=== PATIENT | male | born 1950 | race Caucasian/White ===

== ENCOUNTER → 2016-04-06 | Outpatient (CLI) | payer MEDICARE, BC ==
[~2016-04-06] MED LIST: CARDIZEM CD 18180 MG PO; CHOLESTEROL MED; COUMADIN 5MG5 MG/TAB PO; FLEXERIL 1010 MG/TAB PO; LIPITOR 40MG TA40 MG PO; MULTAQ400 MG PO; OSCAL 500 TAB500 MG PO; PERCOCET 325 MG1 TA2 PO; PRED FORTE 1 ML1 ML OP; RT ADVAIR HFA 1112 G IH; SYNTHROID0.075 MG/T PO; TYLENOL 325MG325 MG PO; [UNRECOGNIZED DRUG - REMARK]
== END ==
LOC: COL.PUL 07:43
DX: R06.02 Shortness of breath (principal)

== ENCOUNTER → 2016-12-24 | Outpatient (CLI) | payer MEDICARE, BC ==
[~2016-12-24] MED LIST changes: +CLEOCIN HCL300 MG PO; +COUMADIN 22.5 MG/TAB PO; +PRED FORTE 1 ML1 ML; +TAMBOCOR 1100 MG/TAB PO; +TAZTIA240 PO; +ZESTRIL2.5 MG PO
== END ==
LOC: COL.RAD 15:19
DX: J34.89 Other specified disorders of nose and nasal sinuses (principal); M47.812 Spondylosis without myelopathy or radiculopathy, cervical region; J32.9 Chronic sinusitis, unspecified; R90.82 White matter disease, unspecified; R00.0 Tachycardia, unspecified

== ENCOUNTER 2016-12-25 16:16 | Inpatient (IN) | payer MEDICARE, BC ==
[~2016-12-25] VITALS: Ht 170.2 cm; Wt 115.2 kg
[~2016-12-25 16:16] MED LIST changes: -CLEOCIN HCL300 MG PO; -COUMADIN 22.5 MG/TAB PO; -PRED FORTE 1 ML1 ML; -TAMBOCOR 1100 MG/TAB PO; -TAZTIA240 PO; -ZESTRIL2.5 MG PO
[2016-12-25] MEDS ORDERED: TAZTIA240 PO (16:55)
[2016-12-25] MEDS ORDERED: TAMBOCOR 1100 MG/TAB PO (16:55)
[2016-12-25] MEDS ORDERED: COUMADIN 22.5 MG/TAB PO (16:56)
[2016-12-25] MEDS ORDERED: ZESTRIL2.5 MG PO (16:57)
[2016-12-25] MEDS ORDERED: CLEOCIN HCL300 MG PO (16:58)
[2016-12-25 17:12] LABS: HEMOGLOBIN 17.8 g/dl (13.5-18.0); MEAN CELL VOLUME 85 fl (80.0-100.0); MEAN CORPUSCULAR HEMOGLOBIN 27 pg (27.0-31.0); MEAN CORPUSCULAR HGB CONC 32 g/dl (33.0-37.0); PLATELET COUNT 176 K/mm3 (130-400); REDCELL DISTRIBUTION WIDTH-CV 17.8 % (11.5-14.5); WHITE BLOOD COUNT 17.7 K/mm3 (4.8-10.8)
[2016-12-25 17:15] LABS: ADD PATHOLOGY DIFF REVIEW NO; HEMATOCRIT 55.1 % (42.0-52.0)
[2016-12-25 17:23] LABS: INR 2.9 (0.8-3.0); PROTHROMBIN TIME 33.9 SECONDS (9.7-12.8)
[2016-12-25 17:31] LABS: ADJUSTED CALCIUM 9.2 mg/dL (8.4-10.2); ALBUMIN 4.1 gm/dL (3.5-5.0); BILIRUBIN,TOTAL 1.9 mg/dL (0.0-1.0); C-REACTIVE PROTEIN 7.6 mg/dL (0.0-0.9); CALCIUM 9.3 mg/dL (8.4-10.2); CREATININE, serum 0.92 mg/dL (0.66-1.25); POTASSIUM 4.2 mmol/L (3.4-5.0); TOTAL PROTEIN 7.6 gm/dL (6.4-8.2)
[2016-12-25 17:37] LABS: BAND 1 % (0-10); NEUTROPHILS 80 % (42.0-75.2); PLATELET ESTIMATE NORMAL (NORMAL); TOTAL CELLS COUNTED 100
[2016-12-25 20:16] VITALS: BP 153/70; PULSE 90; TEMP 98.9
[2016-12-26] VITALS (9 sets, daily range): BP systolic 131–173; BP diastolic 55–87; PULSE 77–89; TEMP 97.6–100
[2016-12-26] MEDS ORDERED: PRED FORTE 1 ML1 ML (06:18)
[2016-12-26 07:25] LABS: BASO % 0.1 % (0.0-2.0); EOS # 0.1 (0.0-0.7); EOS % 1.1 % (0-4.0); GRAN # 7.4 (1.4-6.5); GRAN % 72.8 % (42.2-75.2); HEMATOCRIT 50.6 % (42.0-52.0); HEMOGLOBIN 16.3 g/dl (13.5-18.0); LYMPH # 1.3 (1.2-3.4); MEAN CELL VOLUME 86 fl (80.0-100.0); MEAN CORPUSCULAR HEMOGLOBIN 28 pg (27.0-31.0); MEAN CORPUSCULAR HGB CONC 32 g/dl (33.0-37.0); MEAN PLATELET VOLUME 11.4 fl (7.4-10.4); MONO # 1.3 (0.1-0.6); MONO % 12.8 % (1.7-9.3); PLATELET COUNT 143 K/mm3 (130-400); RED BLOOD COUNT 5.92 M/mm3 (4.20-5.60); REDCELL DISTRIBUTION WIDTH-CV 17.2 % (11.5-14.5); WHITE BLOOD COUNT 10.2 K/mm3 (4.8-10.8)
[2016-12-26 07:37] LABS: INR 2.5 (0.8-3.0); PROTHROMBIN TIME 28.7 SECONDS (9.7-12.8)
[2016-12-26 11:10] LABS: CALCIUM 8.8 mg/dL (8.4-10.2); CREATININE, serum 0.92 mg/dL (0.66-1.25); POTASSIUM 4.1 mmol/L (3.4-5.0)
[2016-12-26 20:52] LABS: PH 6 (5-8); SQUAMOUS EPITHELIAL None Seen /hpf; URINE APPEARANCE Clear; URINE BACTERIA None Seen /hpf; URINE BILIRUBIN Negative (NEGATIVE); URINE BLOOD Negative (NEGATIVE); URINE COLOR Yellow; URINE GLUCOSE Negative (NEGATIVE); URINE KETONE Negative (NEGATIVE); URINE RBC 0-2 /hpf; URINE WBC 0-2 /hpf
[2016-12-27 03:26] VITALS: BP 144/68; PULSE 76; TEMP 97.6
[2016-12-27 06:39] LABS: BASO % 0.1 % (0.0-2.0); EOS # 0.2 (0.0-0.7); EOS % 1.6 % (0-4.0); GRAN # 6.8 (1.4-6.5); GRAN % 74.2 % (42.2-75.2); HEMATOCRIT 48.8 % (42.0-52.0); HEMOGLOBIN 15.8 g/dl (13.5-18.0); LYMPH # 1.2 (1.2-3.4); MEAN CELL VOLUME 86 fl (80.0-100.0); MEAN CORPUSCULAR HEMOGLOBIN 28 pg (27.0-31.0); MEAN CORPUSCULAR HGB CONC 32 g/dl (33.0-37.0); MEAN PLATELET VOLUME 11.2 fl (7.4-10.4); MONO % 10.9 % (1.7-9.3); PLATELET COUNT 146 K/mm3 (130-400); RED BLOOD COUNT 5.71 M/mm3 (4.20-5.60); REDCELL DISTRIBUTION WIDTH-CV 16.5 % (11.5-14.5); WHITE BLOOD COUNT 9.1 K/mm3 (4.8-10.8)
[2016-12-27 07:18] LABS: INR 1.4 (0.8-3.0); PROTHROMBIN TIME 15.7 SECONDS (9.7-12.8)
[2016-12-27 07:53] VITALS: BP 152/63; PULSE 81; TEMP 98.2
== END 2016-12-27 10:13 | disposition home or self-care (01) | DRG 153 ==
LOC: COL.ER 16:16 → MEDICAL 19:15
PROVIDERS: Emergency Medicine; Family Medicine; Nurse Practitioner Family; Physician Assistant
DX: J01.00 Acute maxillary sinusitis, unspecified (principal); K04.7 Periapical abscess without sinus; I10 Essential (primary) hypertension; I48.91 Unspecified atrial fibrillation; Z79.01 Long term (current) use of anticoagulants; I87.8 Other specified disorders of veins
CPT/HCPCS: 99222-AI; 99238; J7030

== ENCOUNTER 2017-07-01 20:00 | Emergency (ER) | payer MEDICARE, BC ==
[~2017-07-01] VITALS: Ht 172.7 cm; Wt 113.6 kg
[~2017-07-01 20:00] MED LIST changes: +CLEOCIN HCL300 MG PO; +COUMADIN 22.5 MG/TAB PO; +PRED FORTE 1 ML1 ML; +TAMBOCOR 1100 MG/TAB PO; +TAZTIA240 PO; +ZESTRIL2.5 MG PO
[2017-07-01 20:11] VITALS: TEMP 98.6
[2017-07-01 20:26] LABS: BASO % 0.2 % (0.0-2.0); EOS # 0.1 (0.0-0.7); EOS % 0.8 % (0-4.0); GRAN # 11.9 (1.4-6.5); HEMOGLOBIN 17.3 g/dl (13.5-18.0); LYMPH # 1.7 (1.2-3.4); LYMPH % 11.3 % (20.0-51.0); MEAN CELL VOLUME 85 fl (80.0-100.0); MEAN CORPUSCULAR HEMOGLOBIN 28 pg (27.0-31.0); MEAN CORPUSCULAR HGB CONC 33 g/dl (33.0-37.0); MEAN PLATELET VOLUME 10.6 fl (7.4-10.4); MONO # 1.2 (0.1-0.6); MONO % 8.2 % (1.7-9.3); PLATELET COUNT 253 K/mm3 (130-400); RED BLOOD COUNT 6.26 M/mm3 (4.20-5.60); REDCELL DISTRIBUTION WIDTH-CV 16.3 % (11.5-14.5)
[2017-07-01 20:27] LABS: HEMATOCRIT 53.3 % (42.0-52.0)
[2017-07-01 20:29] LABS: PROTHROMBIN TIME 35.3 SECONDS (9.7-12.8)
[2017-07-01] MEDS ORDERED: CARDIZEM LA300 MG PO (20:29)
[2017-07-01] MEDS ORDERED: TAMBOCOR150 MG PO (20:29)
[2017-07-01] MEDS ORDERED: LASIX 20MG TABL20 MG PO ×2 (20:30)
[2017-07-01 20:37] LABS: ALBUMIN 3.6 gm/dL (3.5-5.0); BILIRUBIN,TOTAL 0.9 mg/dL (0.0-1.0); CALCIUM 8.9 mg/dL (8.4-10.2); CREATININE, serum 0.84 mg/dL (0.66-1.25); POTASSIUM 3.8 mmol/L (3.4-5.0); TOTAL PROTEIN 7.4 gm/dL (6.4-8.2)
[2017-07-01 20:48] LABS: TROPONIN-I 0.021 ng/mL (0.000-0.034)
[2017-07-01] MEDS ORDERED: PROAIR HFA0.09 MG/AC IH (20:54)
[2017-07-01 21:26] VITALS: BP 157/95; PULSE 85
== END 2017-07-01 21:28 | disposition home or self-care (01) ==
LOC: COL.ER 20:00
PROVIDERS: Family Medicine
DX: I10 Essential (primary) hypertension (principal); I48.91 Unspecified atrial fibrillation; E66.9 Obesity, unspecified; Z68.38 Body mass index [BMI] 38.0-38.9, adult; Z79.51 Long term (current) use of inhaled steroids

== ENCOUNTER 2017-07-03 08:13 | Emergency (ER) | payer MEDICARE, BC ==
[~2017-07-03] VITALS: Ht 172.7 cm; Wt 113.6 kg
[~2017-07-03 08:13] MED LIST changes: +CARDIZEM LA300 MG PO; +LASIX 20MG TABL20 MG PO; +PROAIR HFA0.09 MG/AC IH; +TAMBOCOR150 MG PO
[2017-07-03 08:30] VITALS: TEMP 97.9
[2017-07-03] MEDS ORDERED: TYLENOL 325MG325 MG PO (08:38)
[2017-07-03] MEDS ORDERED: PRED FORTE 1 ML1 ML (08:40)
[2017-07-03] MEDS ORDERED: JANTOVEN5 MG PO (08:41)
[2017-07-03] MEDS ORDERED: CLEOCIN HCL300 MG PO (08:42)
[2017-07-03 09:26] LABS: BASO % 0.1 % (0.0-2.0); EOS # 0.1 (0.0-0.7); EOS % 0.7 % (0-4.0); GRAN # 10.6 (1.4-6.5); GRAN % 78.4 % (42.2-75.2); HEMATOCRIT 52.7 % (42.0-52.0); HEMOGLOBIN 16.9 g/dl (13.5-18.0); LYMPH # 1.5 (1.2-3.4); LYMPH % 11.2 % (20.0-51.0); MEAN CELL VOLUME 86 fl (80.0-100.0); MEAN CORPUSCULAR HEMOGLOBIN 28 pg (27.0-31.0); MEAN CORPUSCULAR HGB CONC 32 g/dl (33.0-37.0); MEAN PLATELET VOLUME 10.1 fl (7.4-10.4); MONO # 1.3 (0.1-0.6); MONO % 9.3 % (1.7-9.3); PLATELET COUNT 249 K/mm3 (130-400); RED BLOOD COUNT 6.11 M/mm3 (4.20-5.60); REDCELL DISTRIBUTION WIDTH-CV 15.8 % (11.5-14.5)
[2017-07-03 09:29] LABS: INR 2.9 (0.8-3.0); PROTHROMBIN TIME 34.3 SECONDS (9.7-12.8)
[2017-07-03 09:31] LABS: PARTIAL THROMBOPLASTIN TIME 52.7 SECONDS (26.0-37.0)
[2017-07-03 09:36] LABS: ALANINE AMINOTRANSFERASE 47 U/L (21-72); ALBUMIN 3.4 gm/dL (3.5-5.0); ALKALINE PHOSPHATASE 76 U/L (50-136); ANION GAP 10 mmol/L (7-16); AST,SGOT 39 U/L (15-37); BLOOD UREA NITROGEN 12 mg/dL (9-20); CARBON DIOXIDE 29 mmol/L (22-30); CHLORIDE 99 mmol/L (98-107); CREATININE, serum 0.92 mg/dL (0.66-1.25); GLUCOSE 127 mg/dL (74-106); LIPASE 62 U/L (23-300); POTASSIUM 4.2 mmol/L (3.4-5.0); SODIUM 139 mmol/L (137-145); TOTAL PROTEIN 6.9 gm/dL (6.4-8.2)
[2017-07-03 09:47] LABS: TROPONIN-I < 0.012 ng/mL (0.000-0.034)
[2017-07-03 13:32] VITALS: BP 133/75; PULSE 78
== END 2017-07-03 13:45 | disposition home or self-care (01) ==
LOC: COL.ER 08:13
PROVIDERS: Emergency Medicine
DX: M25.512 Pain in left shoulder (principal); I48.91 Unspecified atrial fibrillation; I10 Essential (primary) hypertension; E03.9 Hypothyroidism, unspecified; E78.00 Pure hypercholesterolemia, unspecified; Z79.01 Long term (current) use of anticoagulants

== ENCOUNTER 2017-08-23 17:57 | Inpatient (IN) | payer MEDICARE, BC ==
[2017-08-23] VITALS (44 sets, daily range): BP systolic 135; BP diastolic 77; PULSE 89; TEMP 99.6; O2SAT 90–97
[~2017-08-23] VITALS: Ht 170.2 cm; Wt 116.8 kg
[~2017-08-23 17:57] MED LIST changes: +JANTOVEN5 MG PO; +PRED FORTE 1 ML1 ML OD; +ZESTRIL 10MG10 MG PO; -ZESTRIL2.5 MG PO
[2017-08-23 18:19] LABS: BASO % 0.2 % (0.0-2.0); EOS % 0.1 % (0-4.0); GRAN # 14.7 (1.4-6.5); GRAN % 92.4 % (42.2-75.2); HEMOGLOBIN 17.3 g/dl (13.5-18.0); LYMPH % 6.1 % (20.0-51.0); MEAN CELL VOLUME 85 fl (80.0-100.0); MEAN CORPUSCULAR HEMOGLOBIN 28 pg (27.0-31.0); MEAN CORPUSCULAR HGB CONC 33 g/dl (33.0-37.0); MEAN PLATELET VOLUME 11.6 fl (7.4-10.4); MONO # 0.1 (0.1-0.6); MONO % 0.9 % (1.7-9.3); PLATELET COUNT 146 K/mm3 (130-400); RED BLOOD COUNT 6.18 M/mm3 (4.20-5.60); REDCELL DISTRIBUTION WIDTH-CV 17.1 % (11.5-14.5)
[2017-08-23 18:22] LABS: ARTERIAL BLD GAS O2 SATURATION 89.5 % (92-100); ARTERIAL BLD GAS TCO2 CT 22.6; ARTERIAL BLOOD GAS BASE EXCESS -0.4 (-2-2); ARTERIAL BLOOD GAS HCO3 21.7 meq/L (22-26); ARTERIAL BLOOD GAS PCO2 29.7 mmHg (35-45); ARTERIAL BLOOD GAS PO2 51.8 mmHg (80-100); ARTERIAL BLOOD GAS pH 7.48 (7.35-7.45)
[2017-08-23 18:24] LABS: HEMATOCRIT 52.5 % (42.0-52.0)
[2017-08-23 18:53] LABS: ALANINE AMINOTRANSFERASE 40 U/L (21-72); ALBUMIN 3.4 gm/dL (3.5-5.0); ALKALINE PHOSPHATASE 77 U/L (50-136); ANION GAP 13 mmol/L (7-16); AST,SGOT 26 U/L (15-37); BILIRUBIN,TOTAL 2.5 mg/dL (0.0-1.0); BLOOD UREA NITROGEN 16 mg/dL (9-20); CALCIUM 9.1 mg/dL (8.4-10.2); CARBON DIOXIDE 25 mmol/L (22-30); CHLORIDE 99 mmol/L (98-107); CREATININE, serum 1.03 mg/dL (0.66-1.25); GLUCOSE 126 mg/dL (74-106); POTASSIUM 4.3 mmol/L (3.4-5.0); SODIUM 136 mmol/L (137-145); TOTAL PROTEIN 6.7 gm/dL (6.4-8.2)
[2017-08-23 19:06] LABS: TROPONIN-I < 0.012 ng/mL (0.000-0.034)
[2017-08-23 19:34] LABS: COLLECTION METHOD CLEAN CATCH
[2017-08-23 19:50] LABS: BUDDING YEAST Present /hpf; PH 7 (5-8); SQUAMOUS EPITHELIAL 0-2 /hpf; URINE APPEARANCE Hazy; URINE BACTERIA Rare /hpf; URINE BILIRUBIN Negative (NEGATIVE); URINE BLOOD 3+ (NEGATIVE); URINE COLOR Red; URINE GLUCOSE Negative (NEGATIVE); URINE KETONE Negative (NEGATIVE); URINE LEUKOCYTE ESTERASE Negative (NEGATIVE); URINE NITRATE Negative (NEGATIVE); URINE PROTEIN(semi-quant) Negative (NEGATIVE); URINE RBC >50 /hpf; URINE UROBILINOGEN Negative (NEGATIVE)
[2017-08-23 22:27] LABS: INR 1.1 (0.8-3.0)
[2017-08-23] MEDS ORDERED: CATAPRES-TTS 30.3 MG TD (22:29)
[2017-08-23] MEDS ORDERED: DOXYCYCLINE 10100 MG PO (22:37)
[2017-08-23] MEDS ORDERED: VALIUM 5MG T5 MG/TAB PO (22:39)
[2017-08-24] VITALS (298 sets, daily range): BP systolic 113–172; BP diastolic 55–83; PULSE 57–94; TEMP 97.9–103.8; O2SAT 88–100
[2017-08-24 05:16] LABS: HEMATOCRIT 49.9 % (42.0-52.0); HEMOGLOBIN 16.1 g/dl (13.5-18.0); MEAN CELL VOLUME 87 fl (80.0-100.0); MEAN CORPUSCULAR HEMOGLOBIN 28 pg (27.0-31.0); MEAN CORPUSCULAR HGB CONC 32 g/dl (33.0-37.0); MEAN PLATELET VOLUME 11.1 fl (7.4-10.4); PLATELET COUNT 118 K/mm3 (130-400); RED BLOOD COUNT 5.75 M/mm3 (4.20-5.60); REDCELL DISTRIBUTION WIDTH-CV 17.2 % (11.5-14.5)
[2017-08-24 05:41] LABS: INR 1.2 (0.8-3.0); PROTHROMBIN TIME 14.1 SECONDS (9.7-12.8)
[2017-08-24 05:49] LABS: ALBUMIN 3.3 gm/dL (3.5-5.0); BILIRUBIN,TOTAL 2.3 mg/dL (0.0-1.0); CALCIUM 8.5 mg/dL (8.4-10.2); CREATININE, serum 1.21 mg/dL (0.66-1.25); POTASSIUM 4.2 mmol/L (3.4-5.0); TOTAL PROTEIN 6.5 gm/dL (6.4-8.2)
[2017-08-24 06:18] LABS: BAND 3 % (0-10); LYMPHOCYTE 9 % (20.0-51.0); NEUTROPHILS 84 % (42.0-75.2); PLATELET ESTIMATE NORMAL (NORMAL)
[2017-08-24] MEDS ORDERED: RT ADVAIR HFA 1112 G IH (08:40)
[2017-08-24] MEDS ORDERED: REFRESH 1 ML1 ML OP (08:41)
[2017-08-24] MEDS ORDERED: LIQUIFILM TEARS15 ML OU (08:42)
[2017-08-25] VITALS (9 sets, daily range): BP systolic 123–157; BP diastolic 52–69; PULSE 61–89; TEMP 97.5–101.2
[2017-08-25 06:08] LABS: BASO % 0.2 % (0.0-2.0); GRAN # 13.7 (1.4-6.5); GRAN % 85.6 % (42.2-75.2); HEMATOCRIT 49.5 % (42.0-52.0); HEMOGLOBIN 16.3 g/dl (13.5-18.0); LYMPH # 0.7 (1.2-3.4); LYMPH % 4.6 % (20.0-51.0); MEAN CELL VOLUME 85 fl (80.0-100.0); MEAN CORPUSCULAR HEMOGLOBIN 28 pg (27.0-31.0); MEAN CORPUSCULAR HGB CONC 33 g/dl (33.0-37.0); MEAN PLATELET VOLUME 11.8 fl (7.4-10.4); MONO # 1.5 (0.1-0.6); PLATELET COUNT 88 K/mm3 (130-400); RED BLOOD COUNT 5.85 M/mm3 (4.20-5.60); REDCELL DISTRIBUTION WIDTH-CV 17.3 % (11.5-14.5)
[2017-08-25 06:11] LABS: INR 1.3 (0.8-3.0); PROTHROMBIN TIME 14.5 SECONDS (9.7-12.8)
[2017-08-25 06:18] LABS: ALBUMIN 3.2 gm/dL (3.5-5.0); BILIRUBIN,TOTAL 2.2 mg/dL (0.0-1.0); CALCIUM 8.4 mg/dL (8.4-10.2); CREATININE, serum 0.94 mg/dL (0.66-1.25); POTASSIUM 4.2 mmol/L (3.4-5.0); TOTAL PROTEIN 6.3 gm/dL (6.4-8.2)
[2017-08-26 03:47] VITALS: BP 132/69; PULSE 68; TEMP 98.4
[2017-08-26 06:55] LABS: HEMATOCRIT 47.8 % (42.0-52.0); HEMOGLOBIN 15.2 g/dl (13.5-18.0); MEAN CELL VOLUME 86 fl (80.0-100.0); MEAN CORPUSCULAR HEMOGLOBIN 28 pg (27.0-31.0); MEAN CORPUSCULAR HGB CONC 32 g/dl (33.0-37.0); MEAN PLATELET VOLUME 11.4 fl (7.4-10.4); PLATELET COUNT 90 K/mm3 (130-400); RED BLOOD COUNT 5.53 M/mm3 (4.20-5.60); REDCELL DISTRIBUTION WIDTH-CV 17.3 % (11.5-14.5)
[2017-08-26 07:06] LABS: ALBUMIN 3.1 gm/dL (3.5-5.0); BILIRUBIN,TOTAL 1.5 mg/dL (0.0-1.0); CALCIUM 8.5 mg/dL (8.4-10.2); CREATININE, serum 0.89 mg/dL (0.66-1.25); MAGNESIUM 2.2 mg/dL (1.6-2.3); POTASSIUM 4.2 mmol/L (3.4-5.0); TOTAL PROTEIN 6.3 gm/dL (6.4-8.2)
[2017-08-26 07:43] VITALS: BP 145/76; PULSE 88; TEMP 99.2
[2017-08-26 08:01] LABS: BAND 3 % (0-10); LYMPHOCYTE 10 % (20.0-51.0); NEUTROPHILS 76 % (42.0-75.2); PLATELET ESTIMATE DECREASED (NORMAL)
[2017-08-26 13:41] LABS: T3 FREE (TRI-IODOTHYRONINE) 1.8 pg/mL (1.7-3.7)
[2017-08-26 13:57] LABS: FOLATE (FOLIC ACID) 8.3 ng/mL (7.0-31.4)
[2017-08-26 15:26] VITALS: BP 149/63; PULSE 74; TEMP 97.9
[2017-08-26 19:38] VITALS: BP 148/64; PULSE 77; TEMP 98.5
[2017-08-26 23:21] VITALS: BP 160/80; PULSE 70; TEMP 98.3
[2017-08-27 03:58] VITALS: BP 150/78; PULSE 74; TEMP 97.7
[2017-08-27 06:44] LABS: BASO % 0.1 % (0.0-2.0); EOS % 0.5 % (0-4.0); GRAN # 6.4 (1.4-6.5); GRAN % 75.3 % (42.2-75.2); HEMATOCRIT 47.4 % (42.0-52.0); HEMOGLOBIN 15.6 g/dl (13.5-18.0); LYMPH # 0.9 (1.2-3.4); MEAN CELL VOLUME 84 fl (80.0-100.0); MEAN CORPUSCULAR HEMOGLOBIN 28 pg (27.0-31.0); MEAN CORPUSCULAR HGB CONC 33 g/dl (33.0-37.0); MEAN PLATELET VOLUME 11.9 fl (7.4-10.4); MONO # 1.1 (0.1-0.6); MONO % 12.9 % (1.7-9.3); PLATELET COUNT 103 K/mm3 (130-400); RED BLOOD COUNT 5.67 M/mm3 (4.20-5.60); REDCELL DISTRIBUTION WIDTH-CV 17.3 % (11.5-14.5)
[2017-08-27 07:05] LABS: ALBUMIN 3.2 gm/dL (3.5-5.0); BILIRUBIN,TOTAL 1.4 mg/dL (0.0-1.0); CALCIUM 8.7 mg/dL (8.4-10.2); CREATININE, serum 0.81 mg/dL (0.66-1.25); POTASSIUM 4.1 mmol/L (3.4-5.0); TOTAL PROTEIN 6.5 gm/dL (6.4-8.2)
[2017-08-27] MEDS ORDERED: LEVAQUIN 750MG750 M1 PO (07:47)
[2017-08-27 08:10] VITALS: BP 138/72; PULSE 80; TEMP 98.5
== END 2017-08-27 11:58 | disposition home or self-care (01) | DRG 872 ==
LOC: COL.ER 17:57 → ICU 19:45 → MEDICAL 19:45
PROVIDERS: Family Medicine; Nurse Practitioner; Nurse Practitioner Family; Psychiatry & Neurology Neurology
DX: A41.51 Sepsis due to Escherichia coli [E. coli] (principal); N39.0 Urinary tract infection, site not specified; N41.0 Acute prostatitis; J44.1 Chronic obstructive pulmonary disease with (acute) exacerbation; K92.2 Gastrointestinal hemorrhage, unspecified; E03.9 Hypothyroidism, unspecified; G25.0 Essential tremor; E87.2 Acidosis; E78.5 Hyperlipidemia, unspecified; I48.91 Unspecified atrial fibrillation; D69.6 Thrombocytopenia, unspecified; G47.33 Obstructive sleep apnea (adult) (pediatric)
CPT/HCPCS: 99222-AI; 99232-AI; 99239; J1940; J1956; J7030; Q9967

== ENCOUNTER 2017-08-29 10:19 | Emergency (ER) | payer MEDICARE, BC ==
[~2017-08-29] VITALS: Ht 170.2 cm; Wt 113.6 kg
[~2017-08-29 10:19] MED LIST changes: +CATAPRES-TTS 30.3 MG TD; +DOXYCYCLINE 10100 MG PO; +LEVAQUIN 750MG750 M1 PO; +LIQUIFILM TEARS15 ML OU; +REFRESH 1 ML1 ML OP; +VALIUM 5MG T5 MG/TAB PO
[2017-08-29 10:21] VITALS: TEMP 98.3
[2017-08-29 11:11] LABS: BASO % 0.1 % (0.0-2.0); EOS # 0.1 (0.0-0.7); EOS % 0.7 % (0-4.0); GRAN # 7.8 (1.4-6.5); GRAN % 76.5 % (42.2-75.2); HEMATOCRIT 48.9 % (42.0-52.0); HEMOGLOBIN 16.1 g/dl (13.5-18.0); LYMPH # 1.1 (1.2-3.4); LYMPH % 11.1 % (20.0-51.0); MEAN CELL VOLUME 84 fl (80.0-100.0); MEAN CORPUSCULAR HEMOGLOBIN 28 pg (27.0-31.0); MEAN CORPUSCULAR HGB CONC 33 g/dl (33.0-37.0); MEAN PLATELET VOLUME 11.2 fl (7.4-10.4); MONO # 1.2 (0.1-0.6); MONO % 11.3 % (1.7-9.3); PLATELET COUNT 151 K/mm3 (130-400); RED BLOOD COUNT 5.81 M/mm3 (4.20-5.60); REDCELL DISTRIBUTION WIDTH-CV 17.3 % (11.5-14.5)
[2017-08-29 11:26] LABS: ALBUMIN 3.4 gm/dL (3.5-5.0); BILIRUBIN,TOTAL 1.2 mg/dL (0.0-1.0); CALCIUM 9.2 mg/dL (8.4-10.2); CREATININE, serum 0.84 mg/dL (0.66-1.25); POTASSIUM 3.9 mmol/L (3.4-5.0); TOTAL PROTEIN 6.9 gm/dL (6.4-8.2)
[2017-08-29] MEDS ORDERED: CLEOCIN HCL300 MG PO (11:49)
[2017-08-29 12:17] VITALS: BP 134/68; PULSE 71
== END 2017-08-29 12:19 | disposition home or self-care (01) ==
LOC: COL.ER 10:19
PROVIDERS: Emergency Medicine
DX: L03.113 Cellulitis of right upper limb (principal); I80.8 Phlebitis and thrombophlebitis of other sites; I48.91 Unspecified atrial fibrillation; J44.9 Chronic obstructive pulmonary disease, unspecified; I10 Essential (primary) hypertension; E03.9 Hypothyroidism, unspecified; E78.5 Hyperlipidemia, unspecified; Z79.52 Long term (current) use of systemic steroids; Z79.01 Long term (current) use of anticoagulants

== ENCOUNTER 2018-01-25 11:15 | Emergency (ER) | payer MEDICARE, BC ==
[~2018-01-25] VITALS: Ht 172.7 cm; Wt 108.6 kg
[2018-01-25 11:21] VITALS: TEMP 98.4
[2018-01-25 11:46] LABS: BASO % 0.2 % (0.0-2.0); EOS # 0.1 (0.0-0.7); EOS % 0.9 % (0-4.0); GRAN # 6.1 (1.4-6.5); GRAN % 72.6 % (42.2-75.2); HEMATOCRIT 46.3 % (42.0-52.0); HEMOGLOBIN 15.4 g/dl (13.5-18.0); LYMPH # 1.3 (1.2-3.4); LYMPH % 15.4 % (20.0-51.0); MEAN CELL VOLUME 85 fl (80.0-100.0); MEAN CORPUSCULAR HEMOGLOBIN 28 pg (27.0-31.0); MEAN CORPUSCULAR HGB CONC 33 g/dl (33.0-37.0); MEAN PLATELET VOLUME 11.4 fl (7.4-10.4); MONO # 0.9 (0.1-0.6); MONO % 10.8 % (1.7-9.3); PLATELET COUNT 129 K/mm3 (130-400); RED BLOOD COUNT 5.43 M/mm3 (4.20-5.60); REDCELL DISTRIBUTION WIDTH-CV 14.5 % (11.5-14.5)
[2018-01-25 11:51] LABS: PROTHROMBIN TIME 10.9 SECONDS (9.7-12.8)
[2018-01-25 11:54] LABS: BILIRUBIN,TOTAL 1.5 mg/dL (0.0-1.0); CALCIUM 9.6 mg/dL (8.4-10.2); CREATININE, serum 0.93 mg/dL (0.66-1.25); POTASSIUM 4.6 mmol/L (3.4-5.0); TOTAL PROTEIN 7.2 gm/dL (6.4-8.2)
[2018-01-25 12:06] LABS: TROPONIN-I 0.013 ng/mL (0.000-0.034)
[2018-01-25] MEDS ORDERED: RT ADVAIR HFA 1112 G IH (12:19)
[2018-01-25] MEDS ORDERED: CATAPRES0.2 MG PO (12:20)
[2018-01-25] MEDS ORDERED: CARDIZEM LA240 MG PO (12:20)
[2018-01-25 12:21] LABS: COLLECTION METHOD CLEAN CATCH
[2018-01-25] MEDS ORDERED: ASPIRIN 81M81 MG/TA2 PO (12:23)
[2018-01-25 12:30] LABS: MUCOUS Present /lpf; PH 6 (5-8); SQUAMOUS EPITHELIAL None Seen /hpf; URINE APPEARANCE Clear; URINE BACTERIA None Seen /hpf; URINE BILIRUBIN Negative (NEGATIVE); URINE BLOOD Negative (NEGATIVE); URINE COLOR Colorless; URINE GLUCOSE Negative (NEGATIVE); URINE KETONE Negative (NEGATIVE); URINE LEUKOCYTE ESTERASE Negative (NEGATIVE); URINE NITRATE Negative (NEGATIVE); URINE PROTEIN(semi-quant) Negative (NEGATIVE); URINE RBC None Seen /hpf; URINE UROBILINOGEN Negative (NEGATIVE); URINE WBC 0-2 /hpf
[2018-01-25 13:37] VITALS: BP 132/97; PULSE 70
== END 2018-01-25 13:39 | disposition home or self-care (01) ==
LOC: COL.ER 11:15
PROVIDERS: Emergency Medicine
DX: I10 Essential (primary) hypertension (principal); Z88.0 Allergy status to penicillin; Z98.890 Other specified postprocedural states; Z79.82 Long term (current) use of aspirin

== ENCOUNTER → 2018-02-11 | Outpatient (CLI) | payer MEDICARE, BC ==
[~2018-02-11] MED LIST changes: +ASPIRIN 81M81 MG/TA2 PO; +CARDIZEM LA240 MG PO; +CATAPRES0.2 MG PO
== END ==
LOC: COL.RAD 10:30
DX: I10 Essential (primary) hypertension (principal); I70.0 Atherosclerosis of aorta; I25.10 Atherosclerotic heart disease of native coronary artery without angina pectoris; N28.1 Cyst of kidney, acquired; D35.00 Benign neoplasm of unspecified adrenal gland
CPT/HCPCS: Q9967

== ENCOUNTER 2018-05-25 07:25 | Emergency (ER) | payer MEDICARE, BC ==
[~2018-05-25] VITALS: Ht 170.2 cm; Wt 113.6 kg
[~2018-05-25 07:25] MED LIST changes: -PRED FORTE 1 ML1 ML OD; +PREDFORTE5ML PO
[2018-05-25 07:34] VITALS: TEMP 98.1
[2018-05-25] MEDS ORDERED: TAMIFLU 75MG75 MG PO (08:04)
[2018-05-25] MEDS ORDERED: CORICCLDFLU PO (08:05)
[2018-05-25] MEDS ORDERED: EXPECTORANT DM240 ML PO (08:06)
[2018-05-25] MEDS ORDERED: 00186-0370-20 IH (08:08)
[2018-05-25] MEDS ORDERED: CALCIUM CARBON650 M2 PO (08:17)
[2018-05-25] MEDS ORDERED: VITAMIN C500 MG (08:18)
[2018-05-25 08:50] VITALS: BP 150/85; PULSE 62
== END 2018-05-25 08:50 | disposition home or self-care (01) ==
LOC: COL.ER 07:25
DX: I10 Essential (primary) hypertension (principal); Z79.82 Long term (current) use of aspirin; Z79.899 Other long term (current) drug therapy

== ENCOUNTER → 2022-06-21 | Outpatient (CLI) | payer MEDICARE, BC ==
[~2022-06-21] MED LIST changes: +00186-0370-20 IH; +CALCIUM CARBON650 M2 PO; -CARDIZEM LA240 MG PO; +CORICCLDFLU PO; +EXPECTORANT DM240 ML PO; +LASIX 40MG TABL40 MG PO; +LOZOL 2.5M2.5 MG/TAB PO; +TAMIFLU 75MG75 MG PO; +TOPROL XL 50MG50 MG PO; +VITAMIN C500 MG; +ZYLOPRIM 300MG300 MG PO
== END ==
LOC: COL.RAD 07:37
DX: M46.1 Sacroiliitis, not elsewhere classified (principal)
CPT/HCPCS: G0260; J3301

== ENCOUNTER → 2023-03-07 | Outpatient (CLI) | payer MEDICARE, BC ==
[~2023-03-07] MED LIST changes: +AZO-STANDARD95 MG PO; +BUMEX 1MG TA1 MG/TA1 PO; +CANE; +DESYREL 50MG50 MG PO; +ELIQUIS 5MG PO; +KEPPRA 500MG500 MG PO; +LEADER CLE17 GM/Dose PO; +MOTRIN 200200 MG/TAB PO; +PACERONE200 MG PO; +PACERONE400 MG PO; +ROCEPHIN VIA1 G/VIAL IJ; +ULTRAM 50MG TAB50 MG PO; +VOLTAREN GEL 1%1 TU TP; +ZOFRAN INJ4 MG/2 ML IV
== END ==
LOC: MHCPAIN 12:49
DX: M54.50 Low back pain, unspecified (principal); M47.898 Other spondylosis, sacral and sacrococcygeal region; M53.3 Sacrococcygeal disorders, not elsewhere classified
CPT/HCPCS: J3301; Q9967

== ENCOUNTER → 2024-02-18 | Outpatient (CLI) | payer MEDICARE, BC | LOC: MHCPAIN 15:28 | DX: M53.3 Sacrococcygeal disorders, not elsewhere classified (principal); M47.816 Spondylosis without myelopathy or radiculopathy, lumbar region; M51.369 Other intervertebral disc degeneration, lumbar region without mention of lumbar back pain or lower extremity pain | CPT/HCPCS: G0463 ==